=== PATIENT | female | born 1970 | race Hispanic/Latino ===

== ENCOUNTER 2023-01-13 17:00 | Outpatient (CLI) | payer BC | END 2023-01-13 17:01 | disposition home or self-care (01) | LOC: SLEEPLAB 17:00 | PROVIDERS: ATTEND Family Medicine | DX: G47.33 Obstructive sleep apnea (adult) (pediatric) (principal); R53.83 Other fatigue; F41.9 Anxiety disorder, unspecified; R06.83 Snoring; I10 Essential (primary) hypertension | CPT/HCPCS: 95800 ==

== ENCOUNTER 2023-01-30 17:00 | Outpatient (CLI) | payer BC | END 2023-01-30 17:01 | disposition home or self-care (01) | LOC: SLEEPLAB 17:00 | PROVIDERS: ATTEND Family Medicine | DX: G47.33 Obstructive sleep apnea (adult) (pediatric) (principal); R53.83 Other fatigue; F41.9 Anxiety disorder, unspecified; R06.83 Snoring; I10 Essential (primary) hypertension; G47.10 Hypersomnia, unspecified; E66.9 Obesity, unspecified; Z68.28 Body mass index [BMI] 28.0-28.9, adult | CPT/HCPCS: 95811 ==

== ENCOUNTER 2023-02-19 20:00 | Emergency (ER) | payer BC ==
[2023-02-19 21:35] LABS: #Monocytes 0.4 thou/uL (0.11-0.59); #Neutrophils 5.8 thou/uL (1.40-6.50); %Basophils 0.4 % (0.0-1.0); %Eosinophils 0.1 % (0.0-10.0); %Lymphocytes 19.3 % (21.0-51.0); %Monocytes 4.8 % (0.0-10.0); %Neutrophils 75.1 % (42.0-75.0); Hematocrit 39.5 % (36.0-47.0); Mean Corpuscular HGB CONC 35.4 g/dL (32.0-36.0); Mean Corpuscular Hemoglobin 31.6 pg (27.0-31.0); Mean Corpuscular Volume 89.2 fl (78.0-98.0); Mean Platelet Volume 10.4 fL (7.4-10.4); Platelet Count 210 10x3/uL (130-400); RBC Distribution Width 13.2 % (11.5-14.5); Red Blood Cell (RBC) Count 4.43 mill/uL (4.20-5.40); White Blood Cell (WBC) Count 7.7 10x3/uL (4.8-10.8)
[2023-02-19] MEDS ORDERED: Ondansetron PF 4 MG/2 ML Vial ONE (21:40)
[2023-02-19 22:08] LABS: ALT (SGPT) 14 U/L (8-55); AST (SGOT) 15 U/L (5-34); Albumin 4.4 g/dL (3.5-5.0); Alkaline Phosphatase 99 U/L (40-110); Anion Gap 12 mmol/L (10-20); BUN (Urea Nitrogen) 24 mg/dL (9.8-20.1); Bilirubin, Total 0.4 mg/dL (0.2-1.2); Calc. Creatinine Clearance 0 mL/min (70-130); Calcium 9.2 mg/dL (7.8-10.44); Carbon Dioxide 24 mmol/L (22-29); Chloride 101 mmol/L (98-107); Estimated GFR 72; Globulin 3.3 g/dL (2.4-3.5); Glucose 108 mg/dL (70-105); Potassium 3.7 mmol/L (3.5-5.1); Protein, Total 7.7 g/dL (6.0-8.3); Sodium 133 mmol/L (136-145)
== END 2023-02-19 22:37 | disposition home or self-care (01) ==
LOC: ERS 20:00
DX: R11.2 Nausea with vomiting, unspecified (principal); I10 Essential (primary) hypertension; F17.210 Nicotine dependence, cigarettes, uncomplicated; Z79.899 Other long term (current) drug therapy
CPT/HCPCS: 36415; 80053; 85025; 96361; 96374; J2405

== ENCOUNTER 2023-06-28 21:51 | Emergency (ER) | payer BC ==
[2023-06-28] MEDS ORDERED: HYDROcodone/Acetaminophen 5/325 mg Tablet ONE (22:49)
== END 2023-06-28 23:29 | disposition home or self-care (01) ==
LOC: ERS 21:51
DX: S52.572A Other intraarticular fracture of lower end of left radius, initial encounter for closed fracture (principal); F17.210 Nicotine dependence, cigarettes, uncomplicated; I10 Essential (primary) hypertension; W19.XXXA Unspecified fall, initial encounter
CPT/HCPCS: 29105

== ENCOUNTER 2023-09-22 18:45 | Emergency (ER) | payer SELFPAY ==
[2023-09-22] MEDS ORDERED: Boostrix 0.5 ML (Tdap) VIAL (>/=7 yrs of age) ONE (21:15)
== END 2023-09-22 21:24 | disposition home or self-care (01) ==
LOC: ERS 18:45
DX: S52.502A Unspecified fracture of the lower end of left radius, initial encounter for closed fracture (principal); L03.031 Cellulitis of right toe; I10 Essential (primary) hypertension; F17.210 Nicotine dependence, cigarettes, uncomplicated; W18.30XA Fall on same level, unspecified, initial encounter
CPT/HCPCS: 29125; 90715